=== PATIENT | female | born 2000 | race Caucasian/White ===

== ENCOUNTER → 2024-02-13 | Outpatient (CLI) | payer OTHER ==
[2024-02-13 20:28] LABS: Candida Group, PCR NOT DETECTED (NOT DETECT); Candida glabrata-krusei, PCR NOT DETECTED (NOT DETECT)
[2024-02-13 20:30] LABS: Bacterial Vaginosis PCR Positive (NEGATIVE)
== END | disposition home or self-care (01) ==
LOC: LAB SHORT 13:45 → LAB 13:45
PROVIDERS: Physician Assistant
DX: B37.31 Acute candidiasis of vulva and vagina (principal)
CPT/HCPCS: 87481; 87661; 87801

== ENCOUNTER 2024-04-10 19:12 | Emergency (ER) | payer OTHER ==
[~2024-04-10] VITALS: Ht 165.1 cm; Wt 49.9 kg
[2024-04-10] MEDS ORDERED: CRUTCH4 XX (21:30)
== END 2024-04-10 21:49 | disposition home or self-care (01) ==
LOC: ER 19:12
DX: S93.401A Sprain of unspecified ligament of right ankle, initial encounter (principal); S93.601A Unspecified sprain of right foot, initial encounter; V00.131A Fall from skateboard, initial encounter; Y93.51 Activity, roller skating (inline) and skateboarding
CPT/HCPCS: 73610; 73630; 99283-25

== ENCOUNTER 2024-04-12 13:43 | Emergency (ER) | payer OTHER ==
[~2024-04-12] VITALS: Ht 165.1 cm; Wt 49.9 kg
[~2024-04-12 13:43] MED LIST: CRUTCH4 XX
[2024-04-12] MEDS ORDERED: BUPRENORPHIN-N1 EAC5 SL (14:02)
== END 2024-04-12 15:31 | disposition home or self-care (01) ==
LOC: ER 13:43
DX: S93.401A Sprain of unspecified ligament of right ankle, initial encounter (principal); S93.601A Unspecified sprain of right foot, initial encounter; V00.131A Fall from skateboard, initial encounter
CPT/HCPCS: 73610; 99283-25